=== PATIENT | female | born 1995 ===

== ENCOUNTER 2025-09-25 13:02 | Outpatient (AMB) | payer OTHER, SELFPAY ==
--- NOTE | 2025-09-25 13:26 | MHC.PC.OV ---
Vital Signs 09/25/25 13:37 Weight 155 lb 4 oz BP 102/56 L Blood Pressure Location Lt brachial Position Sitting Respiration 16 Pulse 77 Pulse Source Pulse Oximeter Temp 97.8 F Temp Source Tympanic Pulse Oximetry (%) 98 Oxygen Delivery Method Room Air Intake Visit Reasons: Ankle and Foot / Anxiety Intake Note: Injured left ankle about 2 months ago, states feeling better. Anxiety seems to better on new meds, however, looking for referral to Sally Young for some mental health counseling. Market Intelligence Consultant Required: No Accompanied by: Self / Same As Patient Is last menstrual period known: Yes Last menstrual period: 09/11/25 Post menopausal: No Allergies amoxicillin Allergy (Intermediate, Verified 09/25/25 13:26) Rash Tobacco use date assessed: 09/25/25 Dental Screening Did you have a dental visit in the last 12 months?: Yes Did you have a dental problem in the last 6 months where you did not have access to dental care?: No Was dental information given to patient?: No HPI HPI Comments History of Present Illness Details Patient is a 30-year-old female with a history of generalized anxiety disorder presenting to [facility]. Patient reports not seeing a physician for about 5 years. She requests a referral for therapy to manage job-related stress and anxiety. She was started on Lexapro 5 mg daily few months ago by psychiatry provider for an anxiety related to job stress. Feels that medication is helping. She previously saw a therapist, but would like to be referred to a new provider. Denies any significant past medical history, not on other medications. 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 Drinks 4-5 alcoholic drinks per week typically single glass of wine with dinner. Regarding family history, reports paternal grandfather of brain cancer in his 80s, but parents are healthy. Patient states she had flu and COVID vaccine this year. Reports had Pap smear probably more than 5 years ago. [facility] Social History Housing: Apartment Housing Other:: With partner Patient Tobacco Use Status: Never used Tobacco e-Cigarette/Vaping Use: Never Used Second Hand Smoke Exposure: No service: No Current occupational status: employed Current occupation: Mental Health Therapist Female Reproductive History Menstrual Date of last menstrual period: 09/11/25 Questionnaire PHQ-9 Over the last 2 weeks, how often have you been bothered by any of the following problems? 1. Little interest or pleasure in doing things: not at all 2. Feeling down, depressed, or hopeless: several days (Once or twice a week) 3. Trouble falling or staying asleep, or sleeping too much: not at all 4. Feeling tired or having little energy: more than half the days 5. Poor appetite or overeating: not at all 6. Feeling bad about yourself - or that you are a failure or have let yourself or your family down: several days 7. Trouble concentrating on things, such as reading the newspaper or watching television: several days 8. Moving or speaking so slowly that other people could have noticed. Or the opposite - being so fidgety or restless that you have been moving around a lot more than usual: not at all 9. Thoughts that you would be better off or of hurting yourself in some way: not at all Total score: 5 63791 - PHQ-9 Billing: Yes Source: Developed by Drs. Javier Junior, Boaz Gao and colleagues, with an educational edilia from [employer]. SAAD-7 AMB Questionnaire SAAD-7 Date SAAD - 7 assessed: 09/25/25 Feeling nervous, anxious, or on edge: 2 = More than half the days Not being able to stop or control worryin = Several days Worrying too much about different things: 1 = Several days Trouble relaxin = Not at all Being so restless that it is hard to sit still: 0 = Not at all Becoming easily annoyed or irritable: 2 = More than half the days Feeling afraid as if something awful might happen: 1 = Several days Total SAAD-7 score (0-4 normal; 5-9 mild; 10-14 moderate; 15-21 severe): 7 Source: Developed by Drs. Javier Junior, Boaz Gao and colleagues, with an educational edilia from [employer]. Physical exam (Primary Care) Vital Signs: Last Vital Signs Temp 97.8 F 09/25/25 13:37 Pulse 77 09/25/25 13:37 Resp 16 09/25/25 13:37 BP 102/56 L 09/25/25 13:37 Pulse Ox 98 09/25/25 13:37 Oxygen Delivery Method Room Air 09/25/25 13:37 General: Well-appearing, alert, oriented ?3, in no acute distress. Cardiovascular: RRR, S1-S2 appreciated, no murmurs, rubs or gallops. Respiratory: Lungs clear to auscultation bilaterally, no wheezes, rales or rhonchi. Abdomen: Soft, nontender, nondistended. Normoactive bowel sounds. Psychiatry: Normal mood and affect. Appropriate behavior, good eye contact. Tobacco/Smoking Status: Tobacco use Status Tobacco use date assessed 09/25/25 09/25/25 13:36 Patient Tobacco Use Status Never used Tobacco 09/25/25 13:36 e-Cigarette/Vaping Use Never Used 09/25/25 13:36 PHQ-9: PHQ-9 Score PHQ-9: Total score 5 09/25/25 14:06 Coding Level of Care Code New Pt Level 4 (65995) Diagnoses Establishing care with new doctor, encounter for Z76.89 Generalized anxiety disorder F41.1 Cervical cancer screening Z12.4 Additional Codes PHQ-9 - 73480 - PHQ-9 Billing: Yes ([id number]) Assessment & Plan Assessment & Plan (1) Establishing care with new doctor, encounter for: Code(s): Z76.89 - Persons encountering health services in other specified circumstances Plan: Patient presenting to establish care. Has not seen a doctor in many years, obtain blood work to establish baseline. 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 She was started on Lexapro 5 mg few months ago by a provider at [facility]. She feels that medication is helping. She saw a therapist previously, but would like referral to Sally Young (Paul), Counselor at [facility]. Saad 7 score of 7 consistent with mild anxiety. Referral provided Continue Lexapro 5 mg daily at this time (3) Cervical cancer screening: Code(s): Z12.4 - Encounter for screening for malignant neoplasm of cervix Plan: Patient reports last Pap smear with more than 5 years ago. Referral to OBGYN for Pap smear provided. Orders: Orders Comprehensive Met. Panel Today Z00.00 - Encounter for general adult medical examination without abnormal findings Lipid Panel with Reflex Today Z13.220 - Encounter for screening for lipoid disorders Hemoglobin A1c Today Z13.1 - Encounter for screening for diabetes mellitus Complete Blood Count Auto Diff Today Z00.00 - Encounter for general adult medical examination without abnormal findings Vitamin D 25-OH (D2 and D3) Today E55.9 - Vitamin D deficiency, unspecified Referrals Counseling Referral F41.9 - Anxiety disorder, unspecified CAMPAIGN MARKETING SPECIALIST Referral Z12.4 - Encounter for screening for malignant neoplasm of cervix
[2025-09-25 13:37] VITALS: BP 102/56; PULSE 77; RESP 16; TEMP 36.6; O2SAT 98
--- OUTSIDE RECORDS SUMMARY | 2025-09-25 16:21 | XMS_ITS | Clinical Summary ---
Author Organization [facility] Address [address] [place] [id number] Phone Care Team Providers Care Market Development Analyst Name Role Phone Unknown, Unknown Primary Care Provider Carlos lable Allergies Active Allergy Reactions Criticality Noted Date Comments Amoxicillin Rash Low 09/24/2015 Medications , 1 mg-20 mcg (21)/75 mg (7) per tablet TK 1 T PO QD DIRECTED 4 08/08/2018 Active Social History Tobacco Use Types Packs/Day Years Used Date Smoking Tobacco: Never Smokeless Tobacco: Never Education Answer Date Recorded Are you interested in more education? Not on magy e 01/30/2023 Are you concerned about learning? Not on file 01/30/2023 No 01/30/2023 No 01/30/2023 Digital Access Answer Date Recorded No 03/03/2023 No 03/03/2023 No 03/03/2023 Reliable internet access at home? Not on file 03/03/2023 Device with a working camera? Not on file Comments Unknown Sex and Gender Information Value Date Recorded Sex Assigned at Female 09/21/2018 11:03 AM EST Legal Sex Female 10:52 AM EST Gender Identity Female 09/21/2018 11:03 AM EST Sexual Orientation Lesbian or Bunch 09/21/2018 11 :03 AM EST Last Filed Vital Signs Vital Sign Reading Time Taken Comments Blood Pressure 109/80 09/21/2018 11:12 AM EST Pulse 76 09/21/2018 11:12 AM EST Temperature 37.1 C (98.8 F) 09/21/2018 11:12 AM EST Respiratory Rate - - Oxygen Saturation 98% 09/21/2018 11:12 AM EST Inhaled Oxygen Concentration - - Weight 54.4 kg (120 lb) 09/21/2018 11:12 AM EST Height 160 cm (5' 3 ) 09/21/2018 11:12 AM EST Body Mass Index 21.26 09/21/2018 11:12 AM EST Plan of Treatment Not on file Medical Devices Not on file Insurance [employer] OUT OF [facility] PPO BLUE CROSS OUT OF STATE PPO BLUE CROSS OUT OF STATE PPO BLUE CROSS OUT OF STATE PPO BLUE CROSS OUT OF STATE PPO Care Teams Market Development Analyst Relationship Specialty Start Date End Date Unknown, Unknown, PCP - General 09/21/18 Additional Source Comments The information contained in this document represents components of the legal health record. It is not the complete legal health record.[facility]
== END 2025-09-25 14:17 | disposition home or self-care (01) ==
PROVIDERS: PCP Student in an Organized Health Care Education/Training Program; Visit Provider Student in an Organized Health Care Education/Training Program
DX: Z76.89 Persons encountering health services in other specified circumstances (principal); F41.1 Generalized anxiety disorder; Z12.4 Encounter for screening for malignant neoplasm of cervix

== ENCOUNTER → 2025-09-25 13:02 | Outpatient (BNVA) | payer OTHER, SELFPAY | PROVIDERS: Visit Provider Student in an Organized Health Care Education/Training Program | DX: Z13.31 Encounter for screening for depression (principal); Z13.39 Encounter for screening examination for other mental health and behavioral disorders | CPT/HCPCS: 96127 ==